=== PATIENT | female | born 1940 | race Two or more races ===

== ENCOUNTER 2023-04-13 00:28 | Emergency (ER) | payer OTHER, BC ==
[~2023-04-13] VITALS: Ht 160 cm; Wt 104.3 kg
[2023-04-13] MEDS ORDERED: TOPROL XL25 M1 (00:42)
[2023-04-13 01:00] LABS: ABG PH 7.386 (7.35-7.45); ABG PO2 60.3 mmHg (80-100); BASE EXCESS 0.9 mmol/l; BICARBONATE 26.4 mmol/l (23-25); SaO2 90.4 %; Tco2 27.8 mmol/l
[2023-04-13 01:01] LABS: allen test SATISFACTORY; o2 21 %; puncture site RADIAL RIGHT
[2023-04-13 02:10] LABS: URINE APPEARANCE Clear; URINE BILIRRUBIN Negative (NEGATIVE); URINE BLOOD Negative; URINE COLOR Yellow; URINE GLUCOSE Negative (NEGATIVE); URINE LEUKOCYTE Negative; URINE NITRATE Negative
[2023-04-13 02:12] LABS: HEMATOCRIT 38.6 % (36.0-45.00); HEMOGLOBIN 12.7 g/dL (12.0-15.00); MEAN CELL VOLUME 94.6 fL (80.00-100.00); MEAN CORPUSCULAR HEMOGLOBIN 31.1 pg (27.00-32.0); MEAN CORPUSCULAR HGB CONC 32.9 g/dl (32.0-36.0); RED BLOOD COUNT 4.08 M/uL (4.00-6.00)
[2023-04-13 02:14] LABS: URINE BACTERIA 49.1 uL (0.0-1933); URINE EPITHELIAL CELLS 3.5 uL (0.0-38.8); URINE RBC 10.3 uL (0.0-20.8); URINE WBC 11.5 uL (0.0-23.2)
[2023-04-13 02:17] LABS: PLATELET COUNT 120 K/uL (150-450)
[2023-04-13 02:27] LABS: URINE PROTEIN 100 (NEGATIVE)
[2023-04-13 02:28] LABS: ALBUMIN 2.4 gm/dL (3.4-5.0); BILIRUBIN TOTAL 0.72 mg/dL (0.3-1.2); CALCIUM 8.1 mg/dL (8.5-10.1); CREATININE SERUM 0.69 mg/dL (0.55-1.02); GFR 81.25; GLOBULINA 2.6 G/DL (2.4-3.5); POTASSIUM 3.34 mEq/L (3.5-5.1)
[2023-04-13 02:34] LABS: INR 1.25; PARTIAL THROMBOPLASTIN TIME 28.2 SECONDS (22.0-34.0); PROTHROMBIN TIME 12.9 SECONDS (9.0-11.5)
== END 2023-04-13 05:10 | disposition home or self-care (01) ==
LOC: ER 00:28
DX: I10 Essential (primary) hypertension (principal)

== ENCOUNTER 2023-04-26 09:47 | Emergency (ER) | payer OTHER, BC ==
[~2023-04-26] VITALS: Ht 167.6 cm; Wt 63.5 kg
[~2023-04-26 09:47] MED LIST: TOPROL XL25 M1
[2023-04-26] MEDS ORDERED: HYDROCHLOROTHIA50 MG PO (10:34)
[2023-04-26] MEDS ORDERED: CRESTOR5 MG PO (10:34)
[2023-04-26] MEDS ORDERED: ZOLPIDEM TARTR3.5 MG (10:34)
[2023-04-26] MEDS ORDERED: SERTRALINE20 MG/1 ML (10:35)
[2023-04-26] MEDS ORDERED: TOPROL XL25 M1 (10:35)
[2023-04-26] MEDS ORDERED: ANASTROZOLE1 MG (10:35)
[2023-04-26 11:27] LABS: HEMATOCRIT 42.9 % (36.0-45.00); HEMOGLOBIN 14.4 g/dL (12.0-15.00); MEAN CELL VOLUME 95.1 fL (80.00-100.00); MEAN CORPUSCULAR HEMOGLOBIN 31.9 pg (27.00-32.0); MEAN CORPUSCULAR HGB CONC 33.5 g/dl (32.0-36.0); PLATELET COUNT 141 K/uL (150-450); RED BLOOD COUNT 4.51 M/uL (4.00-6.00); RED CELL DISTRIBUTION WIDTH 15.4 % (11.5-14.5)
[2023-04-26] MEDS ORDERED: CRESTOR40 MG PO (12:20)
[2023-04-26 12:23] LABS: ALBUMIN 3.4 gm/dL (3.4-5.0); BILIRUBIN TOTAL 0.83 mg/dL (0.3-1.2); CALCIUM 9.3 mg/dL (8.5-10.1); CREATININE SERUM 0.85 mg/dL (0.55-1.02); GFR 63.87; GLOBULINA 4.2 G/DL (2.4-3.5); POTASSIUM 3.8 mEq/L (3.5-5.1); TOTAL PROTEIN 7.6 gm/dL (6.4-8.2)
== END 2023-04-26 12:25 | disposition home or self-care (01) ==
LOC: ER 09:47
PROVIDERS: General Practice
DX: I10 Essential (primary) hypertension (principal)